=== PATIENT | male | born 1965 ===

== ENCOUNTER 2016-12-28 12:51 | Emergency (ER) | payer SELFPAY ==
[2016-12-28 12:52] VITALS: BMI 25.9
[2016-12-28 12:58] VITALS: RESP 20
--- NOTE | 2016-12-28 13:03 | ED PDOC ---
HPI: General Adult Time Seen by Provider: 12/28/16 12:55 Chief Complaint (Nursing): Headache Chief Complaint (Provider): ELEVATED BLOOD PRESSURE History Per: Patient (51 Y/O MALE SENT FROM PODIATRIC CLINIC FOR ELEVATED BLOOD PRESSURE READING. DENIES ANY COMPLAINT. NO CHEST PAIN/HEADACHE. HAS FOOT PAIN FROM SURGERY.) Past Medical History Reviewed: Historical Data, Nursing Documentation, Vital Signs Vital Signs: Last Vital Signs Temp 98.1 F 12/28/16 12:55 Pulse 72 12/28/16 17:07 Resp 20 12/28/16 17:07 BP 162/100 H 12/28/16 17:07 Pulse Ox 98 12/28/16 16:53 - Medical History PMH: Fractures, HTN Denies: Chronic Kidney Disease - Family History Family History: States: Unknown Family Hx - Immunization History Hx Tetanus Toxoid Vaccination: No Hx Influenza Vaccination: No Hx Pneumococcal Vaccination: No - Home Medications Home Medications: Ambulatory Orders Medication Instructions Recorded Nebivolol [Bystolic] 10 mg PO DAILY 09/25/16 Cephalexin [Keflex] 500 mg PO TID 10/05/16 oxyCODONE/Acetaminophen [Percocet 1 tab PO Q4 PRN 10/05/16 5/325 mg Tab] Azithromycin [Zithromax] 250 mg PO DAILY #6 tab 11/16/16 - Allergies Allergies/Adverse Reactions: Allergies Allergy/AdvReac Type Severity Reaction Status Date / Time No Known Allergies Allergy Verified 12/28/16 12:54 Review of Systems ROS Statement: Except As Marked, All Systems Reviewed And Found Negative Physical Exam - Reviewed Nursing Documentation Reviewed: Yes Vital Signs Reviewed: Yes - Physical Exam Appears: Positive for: Well, Non-toxic, No Acute Distress Head Exam: Positive for: ATRAUMATIC, NORMAL INSPECTION, NORMOCEPHALIC Skin: Positive for: Normal Color, Warm, DRY Eye Exam: Positive for: EOMI, Normal appearance, PERRL ENT: Positive for: Normal ENT Inspection Neck: Positive for: Normal, Painless ROM Cardiovascular/Chest: Positive for: Regular Rate, Rhythm Respiratory: Positive for: CNT, Normal Breath Sounds Gastrointestinal/Abdominal: Positive for: Normal Exam, Bowel Sounds, Soft Back: Positive for: Normal Inspection Extremity: Positive for: Normal ROM Neurologic/Psych: Positive for: Alert, Oriented - Laboratory Results Result Diagrams: 12/28/16 14:10 12/28/16 14:10 - ECG O2 Sat by Pulse Oximetry: 98 - Progress ED Course And Treament: BLOOD PRESSURE 140/80 IN ED. PATIENT ASYMPTOMATIC. REPEAT BP ELEVATED IN ED. 195/115 Patient states he is very anxious and has h/ o white coat htn. repeat BP 170/110 manually. d/w patient who will f/u with pmd tomorrow. Has no h/o chest pain/headache/etc. Requests to see podiatry resident as he was unable to see them today. Podiatry in ED. Patien to have Xry prior to d/c. Disposition - Clinical Impression Clinical Impression: Hypertension - Patient ED Disposition Is Patient to be Admitted: No - Disposition Referrals: [facility] [Outside] Disposition: Routine/Home Disposition Time: 13:03 Condition: FAIR Additional Instructions: BLOOD PRESSURE 140 /80 Instructions: DASH Eating Plan (GEN), Hypertension (ED) Print Language: ROMANIAN
[2016-12-28 14:18] LABS: BASO # 0.1 K/uL (0.0-0.2); BASO % 0.8 % (0.0-2.0); EOS # 0.2 K/uL (0.0-0.7); EOS % 2.1 % (0.0-4.0); LYMPH # 2.3 K/uL (1.0-4.3); LYMPH % 19.8 % (20.0-40.0); MEAN CELL VOLUME 86.2 fl (80.0-94.0); MEAN CORPUSCULAR HEMOGLOBIN 29.7 pg (27.0-31.0); MEAN CORPUSCULAR HGB CONC 34.4 g/dL (33.0-37.0); MEAN PLATELET VOLUME 8.8 fl (7.2-11.7); MONO % 8.4 % (0.0-10.0); NEUT # 7.9 K/uL (1.8-7.0); NEUT % 68.9 % (50.0-75.0); NRBC % 0.1 % (0.0-0.0); RED CELL DISTRIBUTION WIDTH 13.6 % (11.5-14.5); WHITE BLOOD COUNT 11.5 K/uL (4.8-10.8)
[2016-12-28 14:33] LABS: ALB/GLOB RATIO 1.3 (1.0-2.1); ALKALINE PHOSPHATASE 69 U/L (38-126); ALT/SGPT 45 U/L (21-72); AST/SGOT 36 U/L (17-59); BILIRUBIN,TOTAL 0.3 mg/dl (0.2-1.3); BLOOD UREA NITROGEN 16 mg/dl (9-20); CALCIUM 9.7 mg/dL (8.4-10.2); CARBON DIOXIDE 26 mmol/L (22-30); CHLORIDE 103 mmol/L (98-107); GFR AFRICAN-AMERICAN > 60; GLUCOSE,RANDOM 94 mg/dL (75-110); POTASSIUM 4.5 MMOL/L (3.6-5.0); SODIUM 145 mmol/l (132-148); TOTAL PROTEIN 7.9 G/DL (6.3-8.2)
[2016-12-28 16:13] LABS: RBC URINE < 1 /hpf (0-3); URINE BACTERIA RARE (<OCC); URINE BILIRUBIN NEGATIVE (NEGATIVE); URINE BLOOD NEGATIVE (NEGATIVE); URINE COLOR STRAW (YELLOW); URINE GLUCOSE (UA) NEG (Normal); URINE KETONE NEGATIVE (NEGATIVE); URINE LEUKOCYTE ESTERASE NEG Leu/uL (Negative); URINE PROTEIN NEGATIVE (NEGATIVE); URINE UROBILINOGEN 0.2-1.0 mg/dL (0.2-1.0); WBC URINE < 1 /hpf (0-5)
[2016-12-28 16:34] VITALS: O2SAT 98
--- NOTE | 2016-12-28 17:47 | CP.PCM.CON ---
History of Present Illness - History of Present Illness History of Present Illness: Patient sent to ED from podiatry clinic due to elevated BP. Podiatry service consulted to see patient 11 weeks s/p right foot surgery. Patient denies any pain to right foot 0. States he has been walking in CAM boot without complication. Denies any other complications since last seen in podiatry clinic. Pt denies recent f/c/n/v/cp/sob. Past Patient History - Infectious Disease Hx of Infectious Diseases: None - Past Medical History & Family History Past Medical History?: Yes - Past Social History Smoking Status: Never Smoked - CARDIAC Hx Hypertension: Yes - PULMONARY Hx Respiratory Disorders: No - NEUROLOGICAL Hx Neurological Disorder: No - HEENT Hx HEENT Problems: No - RENAL Hx Chronic Kidney Disease: No - ENDOCRINE/METABOLIC Hx Endocrine Disorders: No - HEMATOLOGICAL/ONCOLOGICAL Hx Blood Disorders: No - INTEGUMENTARY Hx Dermatological Problems: No - MUSCULOSKELETAL/RHEUMATOLOGICAL Hx Fractures: Yes - GASTROINTESTINAL Hx Gastrointestinal Disorders: No - GENITOURINARY/GYNECOLOGICAL Hx Genitourinary Disorders: No - PSYCHIATRIC Hx Psychophysiologic Disorder: No Hx Emotional Abuse: No Hx Physical Abuse: No Hx Substance Use: No - SURGICAL HISTORY Hx Surgeries: Yes Other/Comment: RT FOOT FX - ANESTHESIA Hx Anesthesia: Yes Hx Anesthesia Reactions: No Hx Malignant Hyperthermia: No Meds Allergies/Adverse Reactions: Allergies Allergy/AdvReac Type Severity Reaction Status Date / Time No Known Allergies Allergy Verified 12/28/16 12:54 Physical Exam - Constitutional Appears: Well, Non-toxic, No Acute Distress - Respiratory Exam Respiratory Exam: Clear to Auscultation Bilateral, NORMAL BREATHING PATTERN - Extremities Exam Additional comments: RLE exam: MSK: No pain on palpation illicted at 5th metatarsal base. No pain on ROM at the ankle joint, STJ or MTJ. Manual muscle test 5/5 in PF, DF and Inversion, but 4/5 in eversion, and along course of distal peroneus brevis attachments. Derm: Skin intact, surgical site healed with scar. Vascular: DP and PT pulses 2/4, CFT < 3 sec, temp unremarkable. Ne edam noted at this time. Neuro: Gross sensation intact. - Neurological Exam Neurological exam: Alert, Oriented x3 - Psychiatric Exam Psychiatric exam: Normal Affect, Normal Mood Results - Vital Signs Recent Vital Signs: Last Vital Signs Temp 98.1 F 12/28/16 12:55 Pulse 72 12/28/16 17:07 Resp 20 12/28/16 17:07 BP 162/100 H 12/28/16 17:07 Pulse Ox 98 12/28/16 16:53 - Labs Result Diagrams: 12/28/16 14:10 12/28/16 14:10 Labs: Laboratory Results - last 24 hr 12/28/16 12/28/16 14:10 15:30 WBC 11.5 H RBC 4.99 Hgb 14.8 Hct 43.0 MCV 86.2 MCH 29.7 MCHC 34.4 RDW 13.6 Plt Count 192 MPV 8.8 Neut % (Auto) 68.9 Lymph % (Auto) 19.8 L [place] % (Auto) 8.4 Eos % (Auto) 2.1 Baso % (Auto) 0.8 Neut # 7.9 H Lymph # 2.3 [place] # 1.0 H Eos # 0.2 Baso # 0.1 Sodium 145 Potassium 4.5 Chloride 103 Carbon Dioxide 26 Anion Gap 20 BUN 16 Creatinine 0.9 Est GFR ( Amer) > 60 Est GFR (Non-Af Amer) > 60 Random Glucose 94 Calcium 9.7 Total Bilirubin 0.3 AST 36 ALT 45 Alkaline Phosphatase 69 Total Protein 7.9 Albumin 4.4 Globulin 3.5 Albumin/Globulin Ratio 1.3 Urine Color Straw Urine Clarity Clear Urine pH 8.0 Ur Specific [place] 1.008 Urine Protein Negative Urine Glucose (UA) Neg Urine Ketones Negative Urine Blood Negative Urine Nitrate Negative Urine Bilirubin Negative Urine Urobilinogen 0.2-1.0 Ur Leukocyte Esterase Neg Urine RBC (Auto) < 1 Urine Microscopic WBC < 1 Urine Bacteria Rare Assessment & Plan - Assessment and Plan (Free Text) Assessment: 51 y/o male 11 weeks s/p right 5th metatarsal fracture ORIF (DOS: .) Plan: -evaluated and treated with all questions addressed and answered. -advised to transition to normal shoe gear. Pt to use CAM boot for pain and instability as needed. -advised to continue RICE therapy as needed. -advised to continue home ROM and strengthening exercises. -will consider starting PT after next follow up in podiatry clinic. -to follow up in the podiatry clinic in 1 week. - Date & Time Date: 12/28/16 Time: 17:00
[2016-12-28 18:54] VITALS: BP 140/86; PULSE 80; TEMP 97.8
--- NOTE | 2016-12-29 11:45 | RAD ---
PROCEDURE: Right Foot Radiographs. HISTORY: pain COMPARISON: 11/30/2016 FINDINGS: BONES: Status post open reduction and internal fixation of transverse fracture in the base of the 5th metatarsal. There is interval progressive healing with blurring of fracture margins however a transverse lucency is still visualized. JOINTS: Normal. SOFT TISSUES: Normal. OTHER FINDINGS: None. IMPRESSION: Status post open reduction and internal fixation of transverse fracture in the base of the 5th metatarsal, interval progressive healing with persistent visualization of transverse lucency.
--- NOTE | 2016-12-29 18:59 | CARD ---
APPROVED REPORT EKG Measurement Heart [id number] ME [id number] [id number] <Conclusion> Normal sinus rhythm Normal ECG
== END 2016-12-28 18:54 | disposition home or self-care (01) ==
LOC: H.ER 12:51
DX: I10 Essential (primary) hypertension (principal); M79.671 Pain in right foot